=== PATIENT | female | born 1930 | race Caucasian/White ===

== ENCOUNTER 2018-04-14 15:15 | Inpatient (IN) | payer OTHER ==
[~2018-04-14] VITALS: Ht 147.3 cm; Wt 58.3 kg
[~2018-04-14 15:15] MED LIST: HYDROCHLOROTHIA25 MG PO; SPIRIVA1 INHALATI IH; TOPROL XL100 MG PO; ZETIA10 MG
[2018-04-14 16:11] LABS: HEMATOCRIT 36.4 % (36.0-46.0); MCH 29.4 PG (29.0-34.0); MCV 89.2 FL (83-99); RBC DIS.WIDTH-SD 42.5 % (39-53); RED BLOOD COUNT 4.08 M/uL (3.80-5.20); WHITE BLOOD COUNT 8.1 K/uL (4.1-10.2)
[2018-04-14 16:17] LABS: CHLORIDE 96 mEq/L (99-109); POTASSIUM 4.3 mEq/L (3.7-5.4); SODIUM 139 mEq/L (136-147)
[2018-04-14 16:18] LABS: GLUCOSE 105 mg/dL (70-99)
[2018-04-14 16:22] LABS: CREATININE 1.2 mg/dL (0.6-1.3); GFR ESTIMATE (CALCULATED) 45 mL/min/
[2018-04-14 16:23] LABS: UREA NITROGEN (BUN) 38 mg/dL (9-23)
[2018-04-14 16:29] LABS: TROP-I INTERPRETATION NEGATIVE; TROPONIN-I < 0.01 ng/mL (0.0-0.30)
[2018-04-14 16:51] LABS: HEMATOLOGY COMMENT 1 SN; PLAT.SUFFICIENCY ADEQUATE; PLATELET COUNT 179 K/uL (156-360)
[2018-04-14 17:40] LABS: D-DIMER ELISA < 150.00 ng/mLDDU (<230)
[2018-04-14 17:49] LABS: COMMENTS - BLOOD GASES +C; DEVICE NC; O2 FLOW 2 L/MIN; PCO2 56 mm Hg (35-45); PO2 115 mm Hg (80-100); SITE LR +A; TOTAL RESP RATE 20 resp/min; pH 7.41 (7.35-7.45)
[2018-04-14 17:50] LABS: BASE EXCESS 9.1 mEq/L (-3 to +3); BICARBONATE 35.5 mEq/L (22-26); CARBOXY HGB 1.9 % (0-5); O2 SATURATION (CALCULATED) 99.6 % (95-99)
[2018-04-14] MEDS ORDERED: SYMBICORT60 INHALAT IH (18:44)
[2018-04-14] MEDS ORDERED: ASPIR 8181 M1 PO (18:44)
[2018-04-14] MEDS ORDERED: LISINOPRIL10 MG PO (18:44)
[2018-04-14] MEDS ORDERED: WOMEN'S MULTI200 MCG PO (18:44)
[2018-04-14] MEDS ORDERED: PROAIR HFA8.5 GM IH (18:44)
[2018-04-14] MEDS ORDERED: METAMUCIL FIBE3.4 GM PO (18:44)
[2018-04-14] MEDS ORDERED: ATORVASTATIN CA40 MG PO (18:45)
[2018-04-14 22:21] LABS: D-DIMER ELISA < 150.00 ng/mLDDU (<230)
[2018-04-14 22:33] LABS: TROP-I INTERPRETATION NEGATIVE; TROPONIN-I 0.01 ng/mL (0.0-0.30)
[2018-04-14 23:10] VITALS: BP 154/67
[2018-04-15 01:24] LABS: APPEARANCE CLEAR ((CLEAR)); BILIRUBIN NEGATIVE; BLOOD NEGATIVE; COLOR STRAW ((YELLOW)); GLUCOSE (STRIP) NEGATIVE; KETONES NEGATIVE; LEUKOCYTES SMALL; NITRITE NEGATIVE; PROTEIN (STRIP) NEGATIVE; SPECIFIC GRAVITY 1.013 (1.000-1.030); UROBILINOGEN 0.2 MG/DL (0.2-1.0)
[2018-04-15 01:28] LABS: BACTERIA RARE /HPF; EPITHELIAL CELLS RARE /HPF; MUCUS TRACE /LPF; RED BLOOD CELLS 0-5 /HPF (0-5); UCUL ADDED? YES
[2018-04-15 03:45] VITALS: BP 134/58
[2018-04-15 06:38] LABS: CHLORIDE 99 MEQ/L (99-109); GFR ESTIMATE (CALCULATED) 56 mL/min/; GLUCOSE 154 mg/dL (70-99); SODIUM 140 MEQ/L (136-147); UREA NITROGEN (BUN) 30 mg/dL (9-23)
[2018-04-15 07:15] VITALS: BP 133/69
[2018-04-15 15:04] VITALS: BP 135/67
[2018-04-15 20:01] VITALS: BP 135/62
[2018-04-16 00:05] VITALS: BP 122/54
[2018-04-16 03:39] VITALS: BP 118/55
[2018-04-16 07:30] VITALS: BP 146/67
[2018-04-16 12:13] VITALS: BP 136/66
[2018-04-16] MEDS ORDERED: LOPRESSOR50 MG PO (13:11)
[2018-04-19 09:06] LABS: MNPH Specimen Volume 375 mL (())
[2018-04-19 20:27] LABS: Epinephrine, Plasma 105 pg/mL (()); Norepinephrine, Plasma 420 pg/mL (())
== END 2018-04-16 15:05 | disposition home or self-care (01) | DRG 644 ==
LOC: EME 15:15 → EDOF 21:43 → CANRESERV 21:49 → ENRESERV 21:49 → CANRESERV 22:04 → ENRESERV 22:04 → 5SOUTH 22:50
PROVIDERS: Hospitalist; Internal Medicine; Nurse Practitioner Family
DX: D35.02 Benign neoplasm of left adrenal gland (principal); J44.1 Chronic obstructive pulmonary disease with (acute) exacerbation; J44.0 Chronic obstructive pulmonary disease with (acute) lower respiratory infection; J20.9 Acute bronchitis, unspecified; J96.10 Chronic respiratory failure, unspecified whether with hypoxia or hypercapnia; I10 Essential (primary) hypertension; E78.00 Pure hypercholesterolemia, unspecified; G25.0 Essential tremor; E78.5 Hyperlipidemia, unspecified; Z87.891 Personal history of nicotine dependence; Z99.81 Dependence on supplemental oxygen; Z79.82 Long term (current) use of aspirin; Z86.011 Personal history of benign neoplasm of the brain
CPT/HCPCS: 36600; 70450; 71046; 74177; 80048; 81003; 82384 90; 83835 90; 84484; 85027; 85379; 87070; 87086; 87205; 93005; 93880; 94640; 94799; 99281; 99285; J0696; J1644; J2930; J7030; J7509

== ENCOUNTER 2018-04-20 21:47 | Observation (INO) | payer OTHER ==
[~2018-04-20] VITALS: Ht 147.3 cm; Wt 55.7 kg
[~2018-04-20 21:47] MED LIST changes: +ASPIR 8181 M1 PO; +ATORVASTATIN CA40 MG PO; +LISINOPRIL10 MG PO; +LOPRESSOR50 MG PO; +METAMUCIL FIBE3.4 GM PO; +PROAIR HFA8.5 GM IH; +SYMBICORT60 INHALAT IH; +WOMEN'S MULTI200 MCG PO
[2018-04-20 23:16] LABS: BASOPHIL (%) 0.5 % (0-1); BASOPHIL COUNT 0.1 K/uL (0-0.1); EOSINOPHIL (%) 3.7 % (0-5); EOSINOPHIL COUNT 0.4 K/uL (0-0.3); HEMATOCRIT 35.5 % (36.0-46.0); HEMOGLOBIN 11.7 G/DL (11.9-15.5); IMMATURE GRANULOCYTE (%) 0.4 % (0.0-0.7); LYMPHOCYTE (%) 19.3 % (15-42); MCV 87.9 FL (83-99); MONOCYTE (%) 10.6 % (3-12); MONOCYTE COUNT 1.1 K/uL (0-0.8); NEUTROPHIL (%) 65.5 % (45-76); NEUTROPHIL COUNT 6.8 K/uL (1.8-6.4); PLATELET COUNT 178 K/uL (156-360); RBC DIS.WIDTH-CV 13.2 % (11.8-14.6); RBC DIS.WIDTH-SD 42.5 % (39-53); RED BLOOD COUNT 4.04 M/uL (3.80-5.20); WHITE BLOOD COUNT 10.3 K/uL (4.1-10.2)
[2018-04-20 23:29] LABS: CHLORIDE 98 mEq/L (99-109); POTASSIUM 4.1 mEq/L (3.7-5.4); SODIUM 137 mEq/L (136-147)
[2018-04-20 23:31] LABS: GLUCOSE 104 mg/dL (70-99)
[2018-04-20 23:35] LABS: CREATININE 1.1 mg/dL (0.6-1.3); GFR ESTIMATE (CALCULATED) 50 mL/min/
[2018-04-20 23:36] LABS: UREA NITROGEN (BUN) 31 mg/dL (9-23)
[2018-04-20 23:39] LABS: TROP-I INTERPRETATION NEGATIVE; TROPONIN-I 0.02 ng/mL (0.0-0.30)
[2018-04-21 00:58] LABS: APPEARANCE CLEAR ((CLEAR)); BILIRUBIN NEGATIVE; BLOOD NEGATIVE; COLOR YELLOW ((YELLOW)); GLUCOSE (STRIP) NEGATIVE; KETONES 5; LEUKOCYTES MODERATE; NITRITE NEGATIVE; PROTEIN (STRIP) NEGATIVE; SPECIFIC GRAVITY 1.012 (1.000-1.030); UROBILINOGEN 0.2 MG/DL (0.2-1.0)
[2018-04-21 01:10] LABS: BACTERIA RARE /HPF; EPITHELIAL CELLS RARE /HPF; MUCUS TRACE /LPF; RED BLOOD CELLS 0-5 /HPF (0-5); UCUL ADDED? YES; WHITE BLOOD CELLS 15-20 /HPF (0-5)
[2018-04-21 04:15] VITALS: BP 150/67
[2018-04-21 05:12] LABS: CREATINE KINASE 37 IU/L (1-294); HDL CHOLESTEROL 57 MG/DL (Desirable>=50); LDL CHOLESTEROL 116 mg/dL (Desirable<100); NON-HDL CHOLESTEROL 147 mg/dL (Desirable<160); TOTAL CHOLESTEROL 204 mg/dL (Desirable<200); TOTAL CK 37 IU/L (1-294); TRIGLYCERIDES 154 MG/DL (Normal: <150)
[2018-04-21 05:25] LABS: ERTH.SED.RATE 11 MM/HR (0-30)
[2018-04-21 05:28] LABS: CK-MB 1.8 ng/mL (0.0-4.9)
[2018-04-21 05:40] LABS: CKMB RELATIVE INDEX 4.9 (0.0-3.9)
[2018-04-21 08:03] VITALS: BP 130/62
[2018-04-21 08:08] LABS: FOLIC ACID (FOLATE) > 22.0 NG/ML (5.0-22.0)
[2018-04-21] MEDS ORDERED: LOPRESSOR50 MG PO (16:06)
[2018-04-21] MEDS ORDERED: BACTRIM,SEPT1 TABLET PO (16:07)
[2018-04-21 16:31] VITALS: BP 125/60
[2018-04-23 12:45] LABS: LYME DISEASE SEROLOGY SCREEN NEGATIVE (NEGATIVE)
== END 2018-04-21 17:07 | disposition home or self-care (01) ==
LOC: EME → EDBD 21:47 → EDSEX 21:47 → EDOF 04-21 02:52 → 2EAST 04-21 02:52 → ENRESERV 04-21 02:53 → 2EAST 04-21 04:09
PROVIDERS: Emergency Medicine; Hospitalist
DX: N39.0 Urinary tract infection, site not specified (principal); R53.1 Weakness; E86.0 Dehydration; N95.1 Menopausal and female climacteric states; I10 Essential (primary) hypertension; E78.5 Hyperlipidemia, unspecified; J44.9 Chronic obstructive pulmonary disease, unspecified; D32.1 Benign neoplasm of spinal meninges; Z87.891 Personal history of nicotine dependence; M48.061 Spinal stenosis, lumbar region without neurogenic claudication; M50.90 Cervical disc disorder, unspecified, unspecified cervical region; Z79.82 Long term (current) use of aspirin
CPT/HCPCS: 71045; 72141; 72146; 80048; 80061; 81003; 82550; 82553; 82607; 82746; 83605; 84484; 85025; 85651; 86038; 86140; 86235; 86618; 87040; 87086; 93005; 94799; 99281; 99285; G0378; G8978 GP CJ; G8979 GP CH; J0696; J1644; J2060; J7512